=== PATIENT | female | born 2000 | race Two or more races ===

== ENCOUNTER 2023-05-04 11:51 | Emergency (ER) | payer MEDICAID, OTHER ==
[~2023-05-04] VITALS: Ht 165.1 cm; Wt 95.3 kg
[2023-05-04] MEDS ORDERED: IBUP-1953 PO (12:25)
[2023-05-04] MEDS ORDERED: AZIT250T PO (12:25)
[2023-05-04 12:33] VITALS: BP 132/76; TEMP 98.3; O2SAT 100
== END 2023-05-04 12:32 | disposition home or self-care (01) ==
LOC: ER 12:08
DX: H66.93 Otitis media, unspecified, bilateral (principal); B30.9 Viral conjunctivitis, unspecified